=== PATIENT | female | born 1955 | race Caucasian/White ===

== ENCOUNTER → 2018-10-12 | Outpatient (CLI) | payer MEDICARE ==
[~2018-10-12] MED LIST: ASPI-1005 PO; DIAZ5TAB PO; SULF1TAB42 PO; [UNRECOGNIZED DRUG - CODE] PO; metoprolol er PO
== END | disposition home or self-care (01) ==
LOC: SHCH 12:24
PROVIDERS: ATTEND Internal Medicine Cardiovascular Disease
DX: I70.201 Unspecified atherosclerosis of native arteries of extremities, right leg (principal); I65.21 Occlusion and stenosis of right carotid artery
CPT/HCPCS: 93880; 93925

== ENCOUNTER → 2018-10-21 | Outpatient (CLI) | payer MEDICARE ==
[~2018-10-21] VITALS: Ht 165.1 cm; Wt 102.1 kg
[~2018-10-21] MED LIST changes: +REGADENOSON 0.4 MG/5 ML PF SYG IVP SCH
== END | disposition home or self-care (01) ==
LOC: SHCH 08:00
PROVIDERS: ATTEND Internal Medicine Cardiovascular Disease
DX: R94.39 Abnormal result of other cardiovascular function study (principal); R06.00 Dyspnea, unspecified; M54.9 Dorsalgia, unspecified; I73.9 Peripheral vascular disease, unspecified; E78.5 Hyperlipidemia, unspecified; F17.200 Nicotine dependence, unspecified, uncomplicated; I25.10 Atherosclerotic heart disease of native coronary artery without angina pectoris; Z79.899 Other long term (current) drug therapy; Z82.49 Family history of ischemic heart disease and other diseases of the circulatory system
CPT/HCPCS: 78452; 93017; 96374; A9500 ×2; J2785

== ENCOUNTER → 2018-12-07 | Outpatient (CLI) | payer MEDICARE ==
[~2018-12-07] MED LIST changes: +ALBUTEROL SULFATE 0.083% 2.5 MG/3 ML INH IH ONE; -REGADENOSON 0.4 MG/5 ML PF SYG IVP SCH
== END | disposition home or self-care (01) ==
LOC: RESP 08:52
PROVIDERS: ATTEND Internal Medicine Cardiovascular Disease
DX: R06.00 Dyspnea, unspecified (principal); F17.210 Nicotine dependence, cigarettes, uncomplicated
CPT/HCPCS: 94060; 94727; 94729

== ENCOUNTER → 2018-12-07 | Outpatient (CLI) | payer OTHER ==
[~2018-12-07] MED LIST changes: -ALBUTEROL SULFATE 0.083% 2.5 MG/3 ML INH IH ONE
== END | disposition home or self-care (01) ==
LOC: RAH 08:58
PROVIDERS: ATTEND Internal Medicine Cardiovascular Disease
DX: Z13.6 Encounter for screening for cardiovascular disorders (principal); J98.4 Other disorders of lung; I89.8 Other specified noninfective disorders of lymphatic vessels and lymph nodes
CPT/HCPCS: 75571

== ENCOUNTER → 2018-12-08 | Outpatient (CLI) | payer MEDICARE ==
[~2018-12-08] MED LIST changes: +IOHEXOL 350 MG/ML 100ML INFUS..BTL IV ONE
== END | disposition home or self-care (01) ==
LOC: RAH 07:34
PROVIDERS: ATTEND Internal Medicine Cardiovascular Disease
DX: I73.9 Peripheral vascular disease, unspecified (principal)
CPT/HCPCS: 70498; Q9967

== ENCOUNTER 2018-12-19 05:54 | Day surgery (SDC) | payer MEDICARE ==
[2018-12-16 14:05] VITALS: BP 232/88
[2018-12-16 14:10] LABS: BASOPHILS % (AUTO) 0.7 % (0.0-5.0); EOSINOPHILS % (AUTO) 1.9 % (0.0-8.0); HEMATOCRIT 43.4 % (36-48); LYMPHOCYTES % (AUTO) 28.3 % (21.0-51.0); MEAN CORPUSCULAR HEMOGLOBIN 28.6 pg (27.0-33.0); MEAN CORPUSCULAR HGB CONC 32.9 g/dL (32.0-36.0); MEAN CORPUSCULAR VOLUME 86.9 fL (79-99); MONOCYTES % (AUTO) 9.3 % (3.0-13.0); NEUTROPHILS % (AUTO) 59.8 % (40.0-77.0); PLATELET COUNT (AUTO) 268 K/uL (130-400); RED BLOOD CELL COUNT(AUTO) 4.99 MIL/uL (4.00-5.50); WHITE BLOOD COUNT (AUTO) 9.6 K/uL (4.8-10.8)
[2018-12-16 14:11] LABS: APPEARANCE,URINE Clear (CLEAR); BILIRUBIN,URINE Negative (NEGATIVE); COLOR,URINE Yellow (YELLOW); GLUCOSE, URINE (UA) Negative (NEGATIVE); KETONES,URINE Negative (NEGATIVE); LEUKOCYTE ESTERASE ,URINE Negative (NEGATIVE); NITRATE,URINE Negative (NEGATIVE); OCCULT BLOOD,URINE Negative (NEGATIVE); PROTEIN,URINE Negative (NEGATIVE); UROBILINOGEN,URINE 0.2 mg/dL (0.2-1.0)
[2018-12-16 14:23] LABS: POTASSIUM 4.4 mmol/L (3.5-5.1)
[2018-12-16 14:26] LABS: INR 0.95 (0.85-1.15); PARTIAL THROMBOPLASTIN TIME 33.4 SEC (26.3-35.5)
[2018-12-19] VITALS (9 sets, daily range): BP systolic 121–169; BP diastolic 62–82
[~2018-12-19] VITALS: Ht 162.6 cm; Wt 90.8 kg
[~2018-12-19 05:54] MED LIST changes: +CLOP75TA14 PO; -IOHEXOL 350 MG/ML 100ML INFUS..BTL IV ONE; +METO-391 PO; +SIMV40TA59 PO; +SODIUM CHLORIDE 0.9% 500ML 500 ML IV SCH; -SULF1TAB42 PO; -[UNRECOGNIZED DRUG - CODE] PO; -metoprolol er PO
[2018-12-19] MEDS ORDERED: SODIUM CHLORIDE 0.9% 1000ML 1,000 ML IV ONE (06:10)
[2018-12-19] MEDS ORDERED: DIAZ10TA4 PO (06:57)
[2018-12-19] MEDS ORDERED: ASPI-1181 PO (06:57)
[2018-12-19] MEDS ORDERED: PHARMACY COMMUNICATION MISC SCH (07:00)
[2018-12-19] MEDS ORDERED: NITROGLYCERIN 5 MG/ML 10 ML VIAL IV ONE (07:12)
[2018-12-19] MEDS ORDERED: IOHEXOL-350 50ML VIAL IV ONE (07:12)
[2018-12-19] MEDS ORDERED: SODIUM BICARB 50MEQ 50ML VIAL ONE (07:12)
[2018-12-19] MEDS ORDERED: IOHEXOL 350 MG/ML 100ML INFUS..BTL IV ONE ×2 (07:12→07:46)
[2018-12-19] MEDS ORDERED: LIDOCAINE HCL 2% 20ML ONE (07:12)
--- NOTE | 2018-12-19 07:13 | NUR ---
procedure pt taken to recyclable products sorter for scheduled for procedure. daughter at bedside.
[2018-12-19] MEDS ORDERED: MEPERIDINE-PF 25 MG/ML SYG ONE (07:28)
[2018-12-19] MEDS ORDERED: MIDAZOLAM HCL 1 MG/ML 2ML VIAL ONE (07:28)
[2018-12-19] MEDS ORDERED: HEPARIN SODIUM 1000UNIT/ML 10ML VIAL ONE ×2 (08:03→08:54)
[2018-12-19] MEDS ORDERED: HYDRALAZINE HCL 20 MG/ML VIAL ONE (08:15)
[2018-12-19] MEDS ORDERED: SODIUM CHLORIDE 0.9% 1000ML 1,000 ML IV SCH (09:25)
[2018-12-19] MEDS ORDERED: LABETALOL HCL 5 MG/ML 20ML VIAL IV ONE (09:26)
--- NOTE | 2018-12-19 10:10 | NUR ---
PROCEDURE PT RETURN FROM REFERRAL CLERK, S/P [facility], AORTIC ARCH ANGIOGRAM , S/P STENT TO LEFT VERTEBRAL, STENT TO SUBCLAVIANX 2, RIGHT GROIN DRESSING PERLCOSEDRY AND INTACT, VS STABLE ON ARRIVAL. PT INSTRUCTED TO MAINTAIN BEDREST FOR 4 HOURS . WILL CONTINUE TO MONITOR, SEE POST CATH ASSESSMENT
--- NOTE | 2018-12-19 13:30 | NUR ---
dc dc instructions given to pts daughter, instructed to f/u with dr. keerthi miller/ dr barajas, to continue home meds. right groin dressing dry and intact, no hematoma or bleeding noted. see post cath assessment.
--- NOTE | 2018-12-19 13:40 | NUR ---
dc pt dc home via wc , no distress noted. denied any pain or discomforts. accompanied by spouse
== END 2018-12-19 13:40 | disposition home or self-care (01) ==
LOC: DAH 05:54
PROVIDERS: ATTEND Internal Medicine Cardiovascular Disease
DX: I25.118 Atherosclerotic heart disease of native coronary artery with other forms of angina pectoris (principal); I65.23 Occlusion and stenosis of bilateral carotid arteries; I70.208 Unspecified atherosclerosis of native arteries of extremities, other extremity; T82.856A Stenosis of peripheral vascular stent, initial encounter; I70.8 Atherosclerosis of other arteries; E78.5 Hyperlipidemia, unspecified; F17.210 Nicotine dependence, cigarettes, uncomplicated; Z91.048 Other nonmedicinal substance allergy status; Z91.040 Latex allergy status; Z79.899 Other long term (current) drug therapy; Z82.49 Family history of ischemic heart disease and other diseases of the circulatory system
CPT/HCPCS: 36222; 36226; 36415 ×2; 37236; 37237; 71045; 75710; 80048; 81003; 85025; 85347; 85610; 85730; 93005; 93458; A4606; C1725 ×3; C1760; C1769 ×2; C1874; C1876 ×2; C1887; C1893; C1894 ×2; J0360; J1644 ×3; J2175; J2250; J3490 ×4; J7030; Q9965 ×2; Q9967 ×3

== ENCOUNTER → 2022-07-07 | Outpatient (CLI) | payer OTHER ==
[~2022-07-07] MED LIST changes: -ASPI-1005 PO; +ASPI-1443 PO; +CLOP-31 PO; -CLOP75TA14 PO; +DIAZ10TA4 PO; -DIAZ5TAB PO; -SODIUM CHLORIDE 0.9% 500ML 500 ML IV SCH
[2022-07-07 16:50] LABS: ALBUMIN 3.7 g/dL (3.5-5.0); POTASSIUM 4.2 mmol/L (3.5-5.1); TOTAL PROTEIN, SERUM 7.1 g/dL (6.0-8.3)
== END | disposition home or self-care (01) ==
LOC: LAB 13:21
PROVIDERS: ATTEND Physician Assistant
DX: I10 Essential (primary) hypertension (principal)
CPT/HCPCS: 36415; 80053

== ENCOUNTER → 2022-07-14 | Outpatient (CLI) | payer OTHER ==
[~2022-07-14] MED LIST changes: +IOHEXOL 350 MG/ML 100ML INFUS..BTL IV ONE
== END | disposition home or self-care (01) ==
LOC: RAH 09:55
PROVIDERS: ATTEND Internal Medicine Cardiovascular Disease
DX: I65.23 Occlusion and stenosis of bilateral carotid arteries (principal); I70.8 Atherosclerosis of other arteries; I11.9 Hypertensive heart disease without heart failure; I25.10 Atherosclerotic heart disease of native coronary artery without angina pectoris; I89.8 Other specified noninfective disorders of lymphatic vessels and lymph nodes; E78.5 Hyperlipidemia, unspecified; Z95.828 Presence of other vascular implants and grafts
CPT/HCPCS: 71275; 70498; Q9967

== ENCOUNTER → 2022-08-25 | Outpatient (CLI) | payer OTHER ==
[~2022-08-25] MED LIST changes: -IOHEXOL 350 MG/ML 100ML INFUS..BTL IV ONE; +REGADENOSON 0.4 MG/5 ML PF SYG IVP SCH
== END | disposition home or self-care (01) ==
LOC: SHCH 07:48
PROVIDERS: ATTEND Internal Medicine Cardiovascular Disease
DX: I25.10 Atherosclerotic heart disease of native coronary artery without angina pectoris (principal); Z79.899 Other long term (current) drug therapy
CPT/HCPCS: 78452; 96374; 93017; A9500 ×2

== ENCOUNTER → 2022-09-04 | Outpatient (CLI) | payer OTHER ==
[~2022-09-04] MED LIST changes: +IOHEXOL 350 MG/ML 100ML INFUS..BTL IV ONE; -REGADENOSON 0.4 MG/5 ML PF SYG IVP SCH
== END | disposition home or self-care (01) ==
LOC: RAH 09:56
PROVIDERS: ATTEND Internal Medicine Cardiovascular Disease
DX: I25.119 Atherosclerotic heart disease of native coronary artery with unspecified angina pectoris (principal); I73.9 Peripheral vascular disease, unspecified; Z95.5 Presence of coronary angioplasty implant and graft; I77.89 Other specified disorders of arteries and arterioles; Z95.820 Peripheral vascular angioplasty status with implants and grafts
CPT/HCPCS: 75635; Q9967

== ENCOUNTER 2022-09-23 06:04 | Day surgery (SDC) | payer OTHER ==
[2022-09-22 10:44] LABS: APPEARANCE,URINE CLEAR (CLEAR); BILIRUBIN,URINE NEGATIVE (NEGATIVE); COLOR,URINE LIGHT-YELLOW (YELLOW); GLUCOSE, URINE (UA) NEGATIVE (NEGATIVE); KETONES,URINE NEGATIVE (NEGATIVE); LEUKOCYTE ESTERASE ,URINE NEGATIVE Leu/uL (NEGATIVE); NITRATE,URINE 2+ (NEGATIVE); OCCULT BLOOD,URINE NEGATIVE (NEGATIVE); PH,URINE 5.5 (5.0-8.0); PROTEIN,URINE NEGATIVE (NEGATIVE); UROBILINOGEN,URINE 0.2 mg/dL (0.2-1.0)
[2022-09-22 10:52] LABS: BASOPHILS % (AUTO) 0.5 % (0.0-5.0); EOSINOPHILS % (AUTO) 1.6 % (0.0-8.0); HEMATOCRIT 40.1 % (36-48); LYMPHOCYTES % (AUTO) 21.1 % (21.0-51.0); MEAN CORPUSCULAR HEMOGLOBIN 28.2 pg (27.0-33.0); MEAN CORPUSCULAR HGB CONC 30.9 g/dL (32.0-36.0); MEAN CORPUSCULAR VOLUME 91.3 fL (79-99); MONOCYTES % (AUTO) 6.8 % (3.0-13.0); NEUTROPHILS % (AUTO) 69.6 % (40.0-77.0); PLATELET COUNT (AUTO) 291 K/uL (130-400); RED BLOOD CELL COUNT(AUTO) 4.39 MIL/uL (4.00-5.50); RED CELL DISTRIBUTION WIDTH 14.3 % (11.0-15.5); WHITE BLOOD COUNT (AUTO) 11.6 K/uL (4.8-10.8)
[2022-09-22 10:57] VITALS: BP 143/67
[2022-09-22 10:59] LABS: CREATININE 1.1 mg/dL (0.5-1.5); POTASSIUM 4.1 mmol/L (3.5-5.1)
[2022-09-22 11:25] LABS: INR 0.93 (0.85-1.15)
[2022-09-22 11:26] LABS: PARTIAL THROMBOPLASTIN TIME 31.3 SEC (26.3-35.5)
[2022-09-22 11:43] LABS: BACTERIA,URINE MANY /HPF (None Seen); RBC,URINE 0-1 /HPF (0-1); SQUAMOUS EPITHELIAL CELL,UR RARE /HPF (0-2)
[2022-09-22 19:59] LABS: B-TYPE NATRIURETIC PEPTIDE 212 pg/mL (0-100)
[2022-09-23] VITALS (16 sets, daily range): BP systolic 61–130; BP diastolic 38–67
[~2022-09-23] VITALS: Ht 162.6 cm; Wt 83.6 kg
[~2022-09-23 06:04] MED LIST changes: +GABA300C PO; -IOHEXOL 350 MG/ML 100ML INFUS..BTL IV ONE; -SIMV40TA59 PO; +SIMV80TA91 PO
[2022-09-23] MEDS ORDERED: 0.9%NACL 1000ML 1,000 ML IV ONE (06:24)
[2022-09-23] MEDS ORDERED: HEPARIN 10,000 UNIT/10ML (1,000 UNIT/ML) VIAL ONE (07:22)
[2022-09-23] MEDS ORDERED: SODIUM BICARB 50MEQ 50ML VIAL 50 ML ONE (07:22)
[2022-09-23] MEDS ORDERED: LIDOCAINE HCL 400MG/20ML VIAL ONE (07:23)
[2022-09-23] MEDS ORDERED: NITROGLYCERIN 50MG VIAL ONE (07:23)
[2022-09-23] MEDS ORDERED: MEPERIDINE-PF 25 MG/ML SYG ONE ×2 (07:23→07:36)
[2022-09-23] MEDS ORDERED: MIDAZOLAM HCL 1 MG/ML 2ML VIAL ONE ×2 (07:23→07:36)
[2022-09-23] MEDS ORDERED: IOHEXOL 350 MG/ML 100ML INFUS..BTL IV ONE (07:23)
[2022-09-23] MEDS ORDERED: 0.9%NACL 1000ML 1,000 ML IV SCH (08:30)
[2022-09-23] MEDS ORDERED: NICOTINE 14 MG/ 24 HR PATCH TD SCH (08:30)
== END 2022-09-23 13:30 | disposition home or self-care (01) ==
LOC: DAH 06:04
PROVIDERS: ATTEND Internal Medicine Cardiovascular Disease
DX: I25.119 Atherosclerotic heart disease of native coronary artery with unspecified angina pectoris (principal); G45.8 Other transient cerebral ischemic attacks and related syndromes; I25.82 Chronic total occlusion of coronary artery; I11.0 Hypertensive heart disease with heart failure; I50.32 Chronic diastolic (congestive) heart failure; I25.2 Old myocardial infarction; E78.5 Hyperlipidemia, unspecified; F17.200 Nicotine dependence, unspecified, uncomplicated; Z95.5 Presence of coronary angioplasty implant and graft; Z79.82 Long term (current) use of aspirin; Z79.899 Other long term (current) drug therapy; Z79.01 Long term (current) use of anticoagulants; Y83.8 Other surgical procedures as the cause of abnormal reaction of the patient, or of later complication, without mention of misadventure at the time of the procedure
CPT/HCPCS: 80048; 83880; 85025; 85610; 85730; 87088; 81001; 36415; 71045; 93005; 93458; 36223; 36225; 87077; 87186; C1894; C1760; J3490 ×3; J7030; J2250 ×2; J2175 ×2; J1644; Q9967; A4215; A4222; A4221; A4663; A4216; A4606; Q9965 ×2; A4223 ×3; 96360; 96361; 99156; 99157

== ENCOUNTER → 2023-11-05 | Outpatient (CLI) | payer OTHER | END | disposition home or self-care (01) | LOC: SHCH 13:25 | PROVIDERS: ATTEND Internal Medicine Cardiovascular Disease | DX: I35.8 Other nonrheumatic aortic valve disorders (principal); R01.1 Cardiac murmur, unspecified; I51.7 Cardiomegaly | CPT/HCPCS: 93306 ==

== ENCOUNTER → 2023-11-12 | Outpatient (CLI) | payer OTHER | END | disposition home or self-care (01) | LOC: SHCH 11-10 13:43 | PROVIDERS: ATTEND Internal Medicine Cardiovascular Disease | DX: I65.21 Occlusion and stenosis of right carotid artery (principal); R09.89 Other specified symptoms and signs involving the circulatory and respiratory systems | CPT/HCPCS: 93880 ==

== ENCOUNTER → 2023-11-19 | Outpatient (CLI) | payer OTHER | END | disposition home or self-care (01) | LOC: RAH 15:32 | PROVIDERS: ATTEND Internal Medicine | DX: M47.812 Spondylosis without myelopathy or radiculopathy, cervical region (principal); M48.02 Spinal stenosis, cervical region; J32.9 Chronic sinusitis, unspecified; G44.52 New daily persistent headache (NDPH) | CPT/HCPCS: 70220; 70450; 72052 ==

== ENCOUNTER → 2023-12-31 | Outpatient (CLI) | payer OTHER ==
[2023-12-31 12:55] LABS: CREATININE 1.1 mg/dL (0.5-1.0); POTASSIUM 4.5 mmol/L (3.5-5.1)
== END | disposition home or self-care (01) ==
LOC: LAB 08:20
PROVIDERS: ATTEND Internal Medicine Cardiovascular Disease
DX: I10 Essential (primary) hypertension (principal)
CPT/HCPCS: 36415; 80048

== ENCOUNTER → 2024-02-09 | Outpatient (CLI) | payer OTHER ==
[2024-02-09 12:35] LABS: CREATININE 1.3 mg/dL (0.5-1.0); POTASSIUM 4.1 mmol/L (3.5-5.1)
== END | disposition home or self-care (01) ==
LOC: LAB 08:45
PROVIDERS: ATTEND Internal Medicine Cardiovascular Disease
DX: I73.9 Peripheral vascular disease, unspecified (principal)
CPT/HCPCS: 36415; 80048

== ENCOUNTER → 2024-09-21 | Outpatient (CLI) | payer OTHER ==
[~2024-09-21] MED LIST changes: +IOHEXOL-350 50ML VIAL IV ONE
--- NOTE | 2024-09-21 11:01 | HMCIMG ---
CT CHEST W/CONTRAST HISTORY: Solitary pulmonary nodule COMPARISON: None TECHNIQUE: Multiple sequential axial images of the chest were obtained from the thoracic inlet through upper abdomen. Patient was not given contrast through intravenous route. FINDINGS: There is no evidence of pulmonary nodule or parenchymal disease. There are calcified granuloma in the lingular segment of left upper lobe. No pleural effusion or pericardial effusion is seen. There is no evidence of pneumothorax. There are normal size mediastinal and hilar lymph nodes. Coronary arterial calcifications are seen. Calcified mediastinal lymph nodes are seen The heart is not enlarged. Degenerative changes of the thoracolumbar spine are present. There is no evidence of adrenal nodule. Calcified granuloma are seen in the spleen. IMPRESSION: 1. No evidence of pulmonary nodule or effusion is seen. Calcified mediastinal lymph nodes are seen. CT was performed with one or more following dose reduction techniques: automated exposure control, adjustment of the mA and kv according to patient's size, or use of a iterative reconstruction technique.
== END | disposition home or self-care (01) ==
LOC: RAH 08:49
PROVIDERS: ATTEND Internal Medicine
DX: J98.4 Other disorders of lung (principal); I25.10 Atherosclerotic heart disease of native coronary artery without angina pectoris; M47.815 Spondylosis without myelopathy or radiculopathy, thoracolumbar region; D73.89 Other diseases of spleen; R59.9 Enlarged lymph nodes, unspecified
CPT/HCPCS: 71260; Q9967

== ENCOUNTER → 2024-09-25 | Outpatient (CLI) | payer OTHER ==
[~2024-09-25] MED LIST changes: -IOHEXOL-350 50ML VIAL IV ONE
--- NOTE | 2024-09-26 07:32 | HMCSR ---
APPROVED REPORT Laterality: Bilateral Indications PVD VELOCITY AND DOPPLER WAVEFORM ANALYSIS MAINTENANCE JOURNEYMAN (R) 211.6cm/sec, Biphasic, MAINTENANCE JOURNEYMAN (L) 159.9cm/sec, Biphasic, Prof Fem Art. (R) 144.9cm/sec, Monophasic, Prof Fem Art. (L) 234.3cm/sec, Monophasic, Moderate > 5 0% Fem Art Prox. (R) 139.8cm/sec, Biphasic, Fem Art Prox. (L) 151.7cm/sec, Biphasic, Fem Art Mid. (R) 175.7cm/sec, Biphasic, Fem Art Mid. (L) 164.7cm/sec, Biphasic, Fem Art Dist (R) 131.1cm/sec, Biphasic, Fem Art Dist. (L) 162.6cm/sec, Biphasic, Pop Art(AK) (R) 127.0cm/sec, Biphasic, Pop Art (AK) (L) 294.8cm/sec, Biphasic, Moderate > 50% Pop Art (Fossa)(R) 120.1cm/sec, Biphasic, Pop Art (Fossa) (L) 176.9cm/sec, Biphasic, Pop Art(BK) (R) 144.9cm/sec, Biphasic, Pop Art (BK) (L) 130.3cm/sec, Biphasic, ESL TUTOR Dist. (R) 99.6cm/sec, Biphasic, ESL TUTOR Dist. (L) 67.7cm/sec, Biphasic, Per Art Dist. (R) 64.9cm/sec, Biphasic, Per Art Dist. (L) 49.8cm/sec, Biphasic, NO Dist. (R) 53.8cm/sec, Biphasic, NO Dist. (L) 57.1cm/sec, Biphasic, Technologist Impression Diffuse atherosclerosis throughout the bilateral lower extremities. LT.DFA high velocities of 234.3cm/s suggestive of >50% stenosis LT.POP A. Prox high velocities of 294.8 cm/s suggestive of >50% stenosis. Conclusion Diffuse atherosclerosis throughout the bilateral lower extremities. LT.DFA high velocities of 234.3cm/s suggestive of >50% stenosis LT.POP A. Prox high velocities of 294.8 cm/s suggestive of >50% stenosis. Conclusion Diffuse atherosclerosis throughout the bilateral lower extremities. LT.DFA high velocities of 234.3cm/s suggestive of >50% stenosis LT.POP A. Prox high velocities of 294.8 cm/s suggestive of >50% stenosis.
== END | disposition home or self-care (01) ==
LOC: SHCH 14:26
PROVIDERS: ATTEND Internal Medicine Cardiovascular Disease
DX: I73.9 Peripheral vascular disease, unspecified (principal)
CPT/HCPCS: 93925

== ENCOUNTER → 2024-10-04 | Outpatient (CLI) | payer OTHER ==
[~2024-10-04] MED LIST changes: +IOHEXOL-350 75 ML VIAL IV ONE
--- NOTE | 2024-10-04 13:27 | HMCIMG ---
CT ANGIOGRAM OF THE NECK WITHOUT AND WITH CONTRAST. CT RECONSTRUCTIONS WITHOUT AND WITH CONTRAST. INDICATION: Abnormal ECG/EKG TECHNIQUE: 3-D helical CT acquisition of the neck obtained before and after bolus contrast administration of 75 mL of Omnipaque 350 contrast. Volumetric data was transferred to a [employer] workstation for post processing including 3-D volumetric rendering and multiplanar reconstructions (MPR). Reconstructions reformatted in axial, sagittal, and coronal planes. CT was performed with one or more of the following dose reduction techniques: Automated exposure control, adjustment of the mA and/or kV according to patient size, or use of iterative reconstruction technique. COMPARISON: No prior studies available for comparison. FINDINGS: Small amount of fluid within the left maxillary sinus. Calcified right hilar and subcarinal lymph nodes. Trace calcific plaque is present along the tinajero of the cavernous segments of both internal carotid arteries. Chronically occluded proximal right common carotid artery, but normal flow within the right subclavian and remainder of the right common carotid artery due to placement of by pass graft more superiorly, which is patent. Mild calcific plaque along the aortic arch tinajero and proximal left subclavian arterial stent is patent. CAROTID ARTERIES: Trace calcific plaque along both common carotid arterial bulb tinajero. Remainder of the bilateral common, external, and cervical internal carotid arteries appear normal. VERTEBRAL ARTERIES: Both vertebral arteries appear normal along the cervical spine, without evidence for dissection. IMPRESSION: Chronic proximal right common carotid arterial occlusion near the aortic arch and additional mild arteriosclerotic disease as described, without any significant moderate or high-grade flow-rate limiting stenosis based on NASCET criteria. Acute mild left maxillary sinusitis. CAROTID STENOSIS REFERENCE USING NASCET CRITERIA: % ICA stenosis = (1 - narrowest ICA diameter/diameter of distal cervical ICA) x 100. Mild - <50% stenosis. Moderate - 50-69% stenosis. Severe - 70-94% stenosis. Near occlusion - 95-99% stenosis. Occluded - 100% stenosis.
== END | disposition home or self-care (01) ==
LOC: RAH 08:46
PROVIDERS: ATTEND Internal Medicine Cardiovascular Disease
DX: I65.21 Occlusion and stenosis of right carotid artery (principal); R07.9 Chest pain, unspecified; R94.31 Abnormal electrocardiogram [ECG] [EKG]; I73.9 Peripheral vascular disease, unspecified; R06.00 Dyspnea, unspecified; I70.0 Atherosclerosis of aorta; J32.0 Chronic maxillary sinusitis
CPT/HCPCS: 70498; Q9967

== ENCOUNTER → 2024-10-05 | Outpatient (CLI) | payer OTHER ==
--- NOTE | 2024-10-09 15:10 | HMCSR ---
APPROVED REPORT EXAM: Two-dimensional and M-mode echocardiogram with Doppler and color Doppler. INDICATION ICD: R42 Dizziness and giddiness 2D Dimensions RVDd3.2 cmLVEF(%)75.0 (>50%)LVED Vol(simp.)114.0 mL IVSd1.5 (0.7-1.1cm)FS(%)29 %LVES Vol(simp.)50.0 mL LVDd4.3 (3.8-5.6cm)Ao Root(2D)2.8 (2.0-3.7cm)LVEF(%, simp.)56 % PWd1.6 (0.7-1.1cm)LVOT diam2.0 (1.8-2.4cm)LA ESV INDEX (BP)29.49 mL/m2 LVDs3.1 (2.5-4.0cm)IVC diam1.5 cm Aortic Valve AoV Vmax1.4 m/Shelia Peak GR7.7 mmHgLVOT Vmax1.3 m/s AoV VTI0.3 mAo Mean GR5.1 mmHgLVOT VTI0.36 m SANJAY (VMAX)3.4 cm2Al P1/2T595 msAVA (VTI) 3.4 cm2 Mitral Valve MV E Vmax89.9 cm/sDECEL Mpxt529 ms MV A Dvay760.0 cm/s E/A ratio0.7 MR Max PG40 mmHg TDI E/E' Rheafy41.6E/E' Ospxkwl22.3 Pulmonary Valve PV Vmax1.3 m/sPV VTI0.33 mPV Mean GR4 mmHg PV Peak GR6.6 mmHg Tricuspid Valve TR Vmax2.0 m/sRAP (EST) 3 iiJgEMVS01.5 mmHg TR Peak GR16.5 mmHg Left Ventricle Left ventricular cavity is small, with near oblitration in systole. There is normal LV segmental wall motion. There is severe concentric left ventricular hypertrophy. Left ventricle systolic function is hyperdynamic. The Ejection Fraction is >70%. No left ventricle thrombus noted on this study. Stage I diastolic dysfunction. Right Ventricle The right ventricle is normal size. The right ventricular systolic function is normal. Atria The left atrium size is normal. The right atrium size is normal. Aortic Valve Aortic valve is trileaflet. Aortic valve leaflets are sclerotic but open well. Mild aortic regurgitat ion. Calculated aortic valve area is 3.4 cm2 with maximum pressure gradient of 7.7 mmHg and mean pres sure gradient of 5.1 mmHg. Mitral Valve Mitral annular calcification is mild. Mitral valve leaflets are sclerotic but open well. Mitral regur gitation is trace. There is no mitral valve stenosis. Tricuspid Valve The tricuspid valve leaflets appear normal. There is trace tricuspid regurgitation. Pulmonic Valve The pulmonic valve leaflets appears normal. There is trace pulmonic valvular regurgitation. Great Vessels The aortic root is normal in size. The IVC is normal in size and collapses >50% with inspiration. Pericardium No pericardial effusion. Conclusion Left ventricular cavity is small, with near oblitration in systole. There is severe concentric left ventricular hypertrophy. Left ventricle systolic function is hyperdynamic. The Ejection Fraction is >70%. Stage I diastolic dysfunction. The right ventricle is normal size. The left atrium size is normal. Aortic valve is trileaflet. Aortic valve leaflets are sclerotic but open well. Mild aortic regurgitation. Calculated aortic valve area is 3.4 cm2 with maximum pressure gradient of 7.7 mmHg and mean pressure gradient of 5.1 mmHg. Mitral annular calcification is mild. Mitral valve leaflets are sclerotic but open well. Mitral regurgitation is trace. There is trace tricuspid regurgitation. There is trace pulmonic valvular regurgitation. The aortic root is normal in size. The IVC is normal in size and collapses >50% with inspiration. No pericardial effusion.
== END | disposition home or self-care (01) ==
LOC: SHCH 09:30
PROVIDERS: ATTEND Internal Medicine Cardiovascular Disease
DX: I08.0 Rheumatic disorders of both mitral and aortic valves (principal); I10 Essential (primary) hypertension; R07.9 Chest pain, unspecified
CPT/HCPCS: 93306; Q9967

== ENCOUNTER 2024-11-22 06:27 | Day surgery (SDC) | payer OTHER ==
[2024-11-20 11:04] VITALS: BP 169/83; PULSE 74; RESP 18; TEMP 97.7
[2024-11-20 11:13] LABS: BASOPHILS # (AUTO) 0.07 K/uL (0.00-0.20); BASOPHILS % (AUTO) 0.7 % (0.0-5.0); EOSINOPHILS # (AUTO) 0.24 K/uL (0.00-0.70); EOSINOPHILS % (AUTO) 2.3 % (0.0-8.0); HEMATOCRIT 43.8 % (36-48); IMMATURE GRANULOCYTE ABSOLUTE 0.04 K/uL (0-1); LYMPHOCYTES # (AUTO) 2.8 K/uL (1.0-4.8); LYMPHOCYTES % (AUTO) 26.3 % (21.0-51.0); MEAN CORPUSCULAR HEMOGLOBIN 29.7 pg (27.0-33.0); MEAN CORPUSCULAR HGB CONC 33.3 g/dL (32.0-36.0); MONOCYTES # (AUTO) 0.9 K/uL (0.1-1.0); MONOCYTES % (AUTO) 8.1 % (3.0-13.0); NEUTROPHILS # (AUTO) 6.6 K/uL (1.8-7.7); NEUTROPHILS % (AUTO) 62.2 % (40.0-77.0); PLATELET COUNT (AUTO) 283 K/uL (130-400); RED BLOOD CELL COUNT(AUTO) 4.92 MIL/uL (4.00-5.50); WHITE BLOOD COUNT (AUTO) 10.6 K/uL (4.8-10.8)
[2024-11-20 11:15] LABS: CREATININE 1.1 mg/dL (0.5-1.0); POTASSIUM 4.1 mmol/L (3.5-5.1)
[2024-11-20 11:23] LABS: ADD UA MICROSCOPIC NO; APPEARANCE,URINE CLEAR (CLEAR); BILIRUBIN,URINE NEGATIVE (NEGATIVE); COLOR,URINE LIGHT-YELLOW (YELLOW); GLUCOSE, URINE (UA) NEGATIVE (NEGATIVE); KETONES,URINE NEGATIVE (NEGATIVE); LEUKOCYTE ESTERASE ,URINE NEGATIVE Leu/uL (NEGATIVE); NITRATE,URINE NEGATIVE (NEGATIVE); OCCULT BLOOD,URINE NEGATIVE (NEGATIVE); PH,URINE 5.5 (5.0-8.0); PROTEIN,URINE NEGATIVE (NEGATIVE); UROBILINOGEN,URINE 0.2 mg/dL (0.2-1.0)
[2024-11-20 11:34] LABS: INR 0.95 (0.85-1.15); PROTHROMBIN TIME 10.1 SEC (9.6-11.6)
[2024-11-20 11:36] LABS: PARTIAL THROMBOPLASTIN TIME 31.6 SEC (26.3-35.5)
[2024-11-20 11:38] LABS: B-TYPE NATRIURETIC PEPTIDE 191 pg/mL (0-100)
--- NOTE | 2024-11-20 11:55 | HMCIMG ---
Exam Type: CHEST 1VW Clinical Information: PROEP Comparison: None Findings: Left mid lung benign calcified granuloma. The lungs are clear of infiltrates. The heart is normal in size. The bony and soft tissue structures of the chest are unremarkable. Impression: Clear lungs.
--- NOTE | 2024-11-20 12:03 | EKG ---
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 : 1955 Requested By: Renée HONG Order Number: [id number] Reading MD: Sean Rizzo Measurements Intervals [place] Rate: 72 P: 66 [place]: 193 QRS: 4 QRSD: 84 T: 131 QT: 400 QTc: 440 Interpretive Statements Sinus rhythm Probable left atrial enlargement Anterior infarct, old Abnormal T, consider ischemia, lateral leads Borderline ST elevation, inferior leads Compared to ECG 11/06/2022 09:28:38 ST (T wave) deviation now present Myocardial infarct finding still present T-wave abnormality still present Possible ischemia still present Electronically Signed On 11-20-2024 12:53:35 CDT by Sean Rizzo Please click the below link to view image of tracing.
[2024-11-22] VITALS (11 sets, daily range): BP systolic 96–157; BP diastolic 44–73; PULSE 72–84; RESP 15–18; TEMP 97–97.3
[~2024-11-22] VITALS: Ht 162.6 cm; Wt 80.1 kg
[~2024-11-22 06:27] MED LIST changes: +CILO50TA2 PO; -IOHEXOL-350 75 ML VIAL IV ONE
[2024-11-22] MEDS ORDERED: LIDOCAINE HCL 400MG/20ML VIAL ONE (07:09)
[2024-11-22] MEDS ORDERED: SODIUM BICARB 50MEQ 50ML VIAL 50 ML ONE (07:09)
[2024-11-22] MEDS ORDERED: HEParin-NS 1,000 UNIT/500 ML 1,000 ML IV ONE (07:10)
[2024-11-22] MEDS ORDERED: HEParin 10,000 UNIT/10ML (1,000 UNIT/ML) VIAL ONE (07:10)
[2024-11-22] MEDS ORDERED: NITROGLYCERIN 50MG VIAL ONE (07:10)
[2024-11-22] MEDS ORDERED: IOHEXOL 350 MG/ML 100ML INFUS..BTL IV ONE (07:10)
[2024-11-22] MEDS: 0.9%NACL 1000ML 1,000 ML IV SCH (07:11)
[2024-11-22] MEDS ORDERED: MIDAZOLAM HCL 1 MG/ML 2ML VIAL ONE ×4 (08:24→09:55)
[2024-11-22] MEDS ORDERED: FENTanyl CITRate PF 50 MCG/1 ML 2ML VIAL ONE (08:24)
[2024-11-22] MEDS ORDERED: ATROPINE 1MG SYG IVP ONE (09:08)
[2024-11-22] MEDS ORDERED: HEParin-NS 1,000 UNIT/500 ML 500 ML IV ONE (09:16)
[2024-11-22] MEDS ORDERED: hydrALAZine 20MG/ML VIAL ONE ×2 (09:33→09:59)
[2024-11-22] MEDS ORDERED: DOPamine HCL 400 MG/D5%-WATER 0 ML IV ONE (09:33)
[2024-11-22] MEDS ORDERED: 0.9%NACL 1000ML 1,000 ML IV SCH (10:30)
--- NOTE | 2024-11-22 17:18 | NUR ---
CODING INFORMATION AVAILABLE NOT SHOWING AN INPATIENT ONLY PROCEDURE. CANCELED ADMISSION ORDER [place] [facility] [place]
--- NOTE | 2024-11-22 18:31 | PR ---
PROCEDURES: * Left heart catheterization. * Selective right and left coronary arteriogram. * Attempt at PTCA of the RCA, unsuccessful. * Brachiocephalic artery angiogram. * Left common carotid artery selective angiogram. * Subselective angiography of the left common carotid to right subclavian artery bypass. * Selective left subclavian artery angiogram. * Subselective left vertebral artery angiogram. * Drug-coated balloon angioplasty of the left subclavian artery. * PTC and stent of the left subclavian artery. * SYRUP SHED SUPERVISOR of the left vertebral artery. * Conscious sedation x 90 minutes. INDICATIONS: * Severe peripheral vascular disease. * Severe coronary artery disease. * Status post small coronary artery stenting in the LAD. * Abnormal Lexiscan. * Recurrent angina. COMPLICATIONS: None. TOTAL CONTRAST: Approximately 145 mL. Sedation for 90 minutes. DESCRIPTION OF PROCEDURE: The patient was taken to the cardiac drop crew laborer after appropriate operative consents were signed. She was prepped and draped in the usual fashion. After conscious sedation was administered, the right common femoral artery region was accessed utilizing ultrasound guidance. This was done after administration of local anesthetic with 2% Xylocaine without epinephrine. A 6-Syrian sheath was advanced in retrograde fashion and an FR4 6-Syrian catheter was advanced and selectively engaged in the ostium of the right coronary artery. Imaging was obtained in multiplane. The right coronary artery was a small vessel that had a 99% lesion in the midportion just before the acute marginal branch and 100% occlusion just distal to the acute marginal branch. The distal RCA was not seen by [place] injection. This is a chronic lesion that had been identified on prior studies. At this point, the catheter was withdrawn and FL4 6-Syrian catheter was advanced. This was selectively engaged in the ostium of the circumflex because the left main was very short. The left main was essentially calcified but not stenotic. The circumflex gave rise to 2 small marginal branches and larger OM3 branching. The patient also had an ongoing circ with a left PLVB, consistent with a codominant system. It was noted that the patient's PDA was filling retrograde via branches from the left circumflex system. The catheter was withdrawn and an FL 3.5 diagnostic catheter was advanced and engaged in the left anterior descending coronary artery and left main. This revealed a patent LAD, which gives us several diagonals. The first diagonal was large and just distal to that first diagonal, the patient had a patent stent in the mid LAD, which was deployed in 2014. The distal LAD was normal. Given the patient's symptoms, I elected to proceed with an attempted angioplasty and stenting of the chronic total occlusion of the RCA, which I felt was a low yield procedure, but given the symptoms, I elected to attempt it. We utilized an ART 4.0 guide catheter after full heparinization. The catheter was advanced and engaged in the ostium of the right coronary artery. Dampening occurred immediately because of the smaller size of the right coronary artery and the catheter had to be repositioned. Multiple attempts were made at advancing the wire, which would selectively go into the acute marginal branch and other minor branches, and I did not feel comfortable pushing the wire further and elected to abandon that procedure. At this point, the right coronary artery catheter was reintroduced. Imaging was obtained in the cerebral circulation and evidence of retrograde filling in the vertebral artery and the right carotid. We subselectively imaged a patent left common carotid to right subclavian artery bypass, which is retropharyngeal. It was patent and intracerebral circulation was adequate. At this point, the catheter was withdrawn and engaged in the left subclavian artery. This was imaged in multiplane. This was a moderately sized vessel that had stents in the proximal portion and the BIRCH was patent after the stent. There was another stent after the BIRCH in the left subclavian artery. It was evident the patient had a vertebral artery stent as well. There was evidence of an 80% in-stent restenosis in the proximal portion of the left subclavian stent and 50% in-stent restenosis just distal to the left subclavian vertebral bifurcation. The distal stent also had a 50% in-stent restenosis. The vertebral artery was a large vessel that was tortuous and dominant. It had a stent that was noted to have an 80% plus ostial stenosis. At this point, the decision was made to proceed with intervention for the left subclavian artery. A 6-Syrian sheath was advanced over an indwelling wire and positioned in the left subclavian artery. A 0.035 wire was advanced into the distal subclavian circulation. This was exchanged for a 0.014 wire, which was positioned in the distal subclavian. We elected to utilize a drug-coated balloon and a 7 x 150 Admiral drug-coated balloon was utilized and inflated to nominal pressures with significant improvement in the stenotic lesions, particularly in the distal one. There remained an area of 50% stenosis in the stent just distal to the left vertebral artery. This was then stented with a Herculink 7 x 15 to 12 atmospheres with good angiographic results. At this point, the vertebral artery was wired with a Choice PT wire that was positioned into the left vertebral artery. We then utilized a 4-0 NC balloon into the left subclavian artery was completed. The patient had left subclavian artery stents that were patent and left vertebral artery stent that was patent. Perclose was utilized with good hemostasis. The patient tolerated the procedure well and left the cardiac drop crew laborer in stable condition. FINAL IMPRESSION: * Severe coronary artery disease. * Patent LAD stent. * Chronic total occlusion of the small RCA with unsuccessful attempt at percutaneous revascularization. * Chronically occluded brachiocephalic artery. * Patent left common carotid to right subclavian bypass. * Severe in-stent restenosis in the left subclavian and left vertebral artery. * Successful drug-coated balloon angioplasty of the left subclavian artery with a 7 mm balloon. * Successful stenting of the left subclavian artery with a stent sandwich with a 7 x 15 Herculink stent. * Successful balloon angioplasty for in-stent restenosis in the left vertebral artery with 4.0 NC balloon to 14 atmospheres with good angiographic results. PLAN: Continue medical management, counseling in regard to smoking cessation. TID: [id number] RECEIPT: [id number]
== END 2024-11-22 16:10 | disposition home or self-care (01) ==
LOC: DAH 06:27 → UNDOADMIN 06:28 → DAH 06:28 → DAHIP 06:28
PROVIDERS: ATTEND Internal Medicine Cardiovascular Disease
DX: R94.39 Abnormal result of other cardiovascular function study (principal); I25.118 Atherosclerotic heart disease of native coronary artery with other forms of angina pectoris; I25.82 Chronic total occlusion of coronary artery; I73.9 Peripheral vascular disease, unspecified; I67.2 Cerebral atherosclerosis; I77.1 Stricture of artery; R06.09 Other forms of dyspnea; R07.89 Other chest pain; J44.9 Chronic obstructive pulmonary disease, unspecified; I10 Essential (primary) hypertension; E78.5 Hyperlipidemia, unspecified; F17.210 Nicotine dependence, cigarettes, uncomplicated; Z79.01 Long term (current) use of anticoagulants; Z79.899 Other long term (current) drug therapy
CPT/HCPCS: 80048; 83880; 85025; 85610; 85730; 81003; 36415; 71045; 93005; 92943; 36223; 36225; 37236; 93458; 37246; 85347 ×2; C1769 ×2; C1894 ×2; C1725; C1887; C2623; C1760; C1893; C1876; Q9965 ×2; J3010; J3490 ×3; J0360 ×2; J1644 ×3; J2250 ×4; Q9967; A4215; A4335; A4222; A4221; A4663; A4216; A4606; A4223 ×3; A4554; 96360; 96361; 99156; 99157; J0461; J1265

== ENCOUNTER → 2025-01-10 | Outpatient (CLI) | payer OTHER ==
[~2025-01-10] MED LIST changes: +GADOTERATE MEGLUMINE 10 MMOL/20 ML VIAL IV ONE
--- NOTE | 2025-01-10 14:32 | HMCIMG ---
LUMBAR W FLEXION/EXTENSION REASON: Spinal stenosis, lumbar region w/neurogenic claudication; vertebrogenic LBP. COMPARISON: None TECHNIQUE: 4 images of the lumbar spine were obtained including flexion and extension views. FINDINGS: There is grade 1 anterolisthesis at L5-S1 level. There is straightening of normal lordotic lumbar curvature which may be related to muscle spasm or positioning. Vascular calcifications are seen. There is dextroscoliosis. There appears to be central canal narrowing at L5-S1 level. IMPRESSION: Findings the described above.
--- NOTE | 2025-01-10 18:31 | HMCIMG ---
MRI LUMBAR SPINE WITHOUT CONTRAST INDICATION: Back pain COMPARISON: None PARAMETERS: Long and short axis fat and water weighted sequences were obtained through the lumbar spine. FINDINGS: Normal lordosis of the lumbar spine is maintained. The lumbar vertebral bodies are normal in height, without evidence for acute compression fracture or osseous marrow replacing process. The conus medullaris is normal in signal and terminates at the appropriate level. T12-L1: No significant disc displacement, neuroforaminal narrowing, or central canal stenosis. No significant facet disease identified. L1-L2: No significant disc displacement, neuroforaminal narrowing, or central canal stenosis. No significant facet disease identified. L2-L3 to L4-L5: Shows a shallow posterior disc displacement, including right and left foraminal extension, without any significant neuroforaminal narrowing or central canal stenosis, most pronounced at the L4-L5 level. L5-S1: Focal posterior right paracentral disc extrusion measuring 5 mm in all dimensions, without any significant neuroforaminal narrowing or central canal stenosis. Mild to moderate disc height loss. No evidence for intraannular tear or discitis. Multilevel mild anterior plate osteophytic spurring. The pre- and paraspinous soft tissues appear unremarkable. ANCILLARY FINDINGS: None. IMPRESSION: Focal posterior right paracentral disc extrusion measuring 5 mm in all dimensions, at the L5-S1 level without any significant neuroforaminal narrowing or central canal stenosis. Mild to moderate disc height loss. Level by level analysis, additional minor degenerative changes, and pertinent negatives as reported.
== END | disposition home or self-care (01) ==
LOC: RAH 13:36
PROVIDERS: ATTEND Physical Medicine & Rehabilitation
DX: M47.816 Spondylosis without myelopathy or radiculopathy, lumbar region (principal); M51.27 Other intervertebral disc displacement, lumbosacral region; M43.17 Spondylolisthesis, lumbosacral region; M48.07 Spinal stenosis, lumbosacral region; M46.06 Spinal enthesopathy, lumbar region; M99.02 Segmental and somatic dysfunction of thoracic region; M41.86 Other forms of scoliosis, lumbar region; M25.78 Osteophyte, vertebrae
CPT/HCPCS: 72148; 72114; A9575

== ENCOUNTER → 2025-02-06 | Outpatient (CLI) | payer OTHER ==
[~2025-02-06] MED LIST changes: -GADOTERATE MEGLUMINE 10 MMOL/20 ML VIAL IV ONE
--- NOTE | 2025-02-06 18:15 | HMCIMG ---
EXAM: CR left Shoulder, 2 View. CLINICAL HISTORY: PAIN IN LEFT SHOULDER COMPARISON: None provided. FINDINGS: BONES: No acute fracture or aggressive appearing osseous lesion. JOINTS: No dislocation. The joint spaces are normal. SOFT TISSUES: The soft tissues are unremarkable. IMPRESSION: No acute abnormality evident on examination of the left shoulder. No acute fracture or dislocation. /[place]
--- NOTE | 2025-02-07 12:08 | HMCIMG ---
EXAM: CT Lumbar Spine Without IV Contrast CLINICAL HISTORY: Spondylosis without radiculopathy. TECHNIQUE: Spiral axial CT images through the lumbar spine were acquired, reconstructed in axial and sagittal projections, and imaged using soft tissue and bone algorithms. Reformatted/MPR images were performed. CT scan is done according to ALARA (As Low as Reasonably Achievable). CONTRAST: None. COMPARISON: None provided. FINDINGS: No acute fracture. Normal lordotic curvature. Normal vertebral body heights. Mild reduction in L5-S1 intervertebral disc height. Decreased bone mineralization. Sigmoid diverticulosis. Individual spinal levels are described as follows: T12-L1: No disc bulge or herniation. No neural foraminal, lateral recess, or spinal canal stenosis. L1-L2: No disc bulge or herniation. No neural foraminal, lateral recess, or spinal canal stenosis. L2-L3: Mild disc bulge of 2 mm. No neural foraminal, lateral recess, or spinal canal stenosis. L3-L4: Mild disc bulge of 2 mm indenting the anterior thecal sac. No neural foraminal, lateral recess, or spinal canal stenosis. L4-L5: Mild disc bulge of 3 mm indenting the anterior thecal sac. No neural foraminal, lateral recess, or spinal canal stenosis. L5-S1: Mild disc bulge of 2 mm. No neural foraminal, lateral recess, or spinal canal stenosis. IMPRESSIONS: 1. No acute fracture or subluxation. 2. Osteopenia with mild lumbar spondylosis most pronounced at L5-S1 level. 3. Sigmoid diverticulosis. [facility]
== END | disposition home or self-care (01) ==
LOC: RAH 13:46
PROVIDERS: ATTEND Physical Medicine & Rehabilitation
DX: M47.817 Spondylosis without myelopathy or radiculopathy, lumbosacral region (principal); M51.379 Other intervertebral disc degeneration, lumbosacral region without mention of lumbar back pain or lower extremity pain; K57.30 Diverticulosis of large intestine without perforation or abscess without bleeding; M85.88 Other specified disorders of bone density and structure, other site; M25.512 Pain in left shoulder
CPT/HCPCS: 72131; 73030

== ENCOUNTER → 2025-07-02 | Outpatient (CLI) | payer OTHER ==
[~2025-07-02] MED LIST changes: -ASPI-1443 PO; -CILO50TA2 PO; -CLOP-31 PO; -DIAZ10TA4 PO; -GABA300C PO; +IOHEXOL 350 MG/ML 100ML INFUS..BTL IV ONE; -METO-391 PO; -SIMV80TA91 PO
--- NOTE | 2025-07-03 10:58 | HMCIMG ---
EXAMINATION: CT ANGIOGRAM OF ABDOMEN AND PELVIS AND RUNOFFS OF THE BILATERAL LOWER EXTREMITIES. CLINICAL HISTORY: Peripheral vascular disease, unspecified. COMPARISON: None provided. TECHNIQUE: MDCT angiogram of the abdominal aortic vessels was performed after administration of intravenous contrast. FINDINGS: Abdominal aorta is normal in size and caliber. There are atheromatous wall calcification of the aorta, its branches, iliac arteries, and both lower limb arteries. There is ectasia of the distal descending thoracic aorta with associated intramural thrombus measuring 3.0 x 3.2 cm. There is intramural thrombus of the abdominal aorta causing 20-30% luminal narrowing. The abdominal aortic branches, viz., the celiac and superior mesenteric arteries, are normal in caliber. There is no stenosis or occlusion. The angle between superior mesenteric artery and aorta is normal. Bilateral renal arteries are normal in caliber. There is no stenosis or occlusion. The inferior mesenteric arteries are normal in caliber. Bifurcation morphology is normal. There is no stenosis or occlusion. Short-segment stenosis of the distal left common iliac artery causing 20-30% luminal narrowing. The right common iliac arteries are normal in caliber. No stenosis or occlusion. The bilateral external iliac arteries are normal in caliber. Their branches are normal, and the bilateral internal iliac arteries are normal; there is no stenosis or occlusion. Multilevel short segment narrowing of the mid and distal superficial femoral artery causing 20-30% luminal narrowing. The bilateral profunda femoris and popliteal arteries are normal in size and caliber. There is no stenosis or occlusion. Narrow caliber flow in the bilateral tibio-peroneal arteries. No stenosis/occlusion. Within the abdomen and pelvis, liver is normal in caliber with uniform decreased density; there are splenic calcified granulomas; gallbladder, pancreas, adrenal glands, and kidneys are within normal limits; there are colonic diverticula; rest of the bowel loops are normal in caliber without evidence of obstruction, ileus, or bowel wall thickening, and the appendix is normal; and urinary bladder, appear normal in caliber. The uterus is surgically absent. The included chest reveals a 8 mm calcified nodule in the lingula (series 6, image 4). Bibasilar atelectasis. There is multilevel mild degenerative spondylosis of the spine. IMPRESSION: Atheromatous wall calcification of the aorta, its branches, iliac arteries, and both lower limb arteries with short-segment stenosis of the distal left common iliac artery, both mid and distal segments of superficial femoral artery and narrow-calibre flow in the bilateral tibio-peroneal arteries mild peripheral vascular disease. Ectasia of the distal descending thoracic aorta with associated intramural thrombus. /[place]
== END ==
LOC: RAH 08:54
PROVIDERS: ATTEND Internal Medicine Cardiovascular Disease
DX: I70.203 Unspecified atherosclerosis of native arteries of extremities, bilateral legs (principal); I70.0 Atherosclerosis of aorta; I51.3 Intracardiac thrombosis, not elsewhere classified; I70.8 Atherosclerosis of other arteries; K57.30 Diverticulosis of large intestine without perforation or abscess without bleeding; Z90.710 Acquired absence of both cervix and uterus; M47.815 Spondylosis without myelopathy or radiculopathy, thoracolumbar region
CPT/HCPCS: 75635; Q9967